=== PATIENT | female | born 1980 | race Caucasian/White ===

== ENCOUNTER 2017-07-15 15:31 | Emergency (ER) | payer OTHER ==
--- NOTE | 2017-07-15 16:03 | EDM.PDOC ---
ED HPI GENERAL MEDICAL PROBLEM - General Chief Complaint: Lower Extremity Injury/Pain Stated Complaint: INJURY AT WORK, KNEE INJURY Time Seen by Provider: 07/15/17 15:55 Source of Information: Reports: Patient History Limitations: Reports: No Limitations - History of Present Illness INITIAL COMMENTS - FREE TEXT/NARRATIVE: This 37 yo female patient reports to the ED with left ankle pain. The patient was working at [employer] when she slipped on some water and fell. The patient reports she has had ankle pain since the fall. The patient has not been able to walk on the ankle since the injury. The patient also reports some minor pain in her knees due to the fall. Onset: Today Duration: Minutes: Location: Reports: Lower Extremity, Left Quality: Reports: Ache, Dull Severity: Moderate Improves with: Reports: None Worsens with: Reports: None Left Ankle Pain Score (Numeric/FACES): 7 - Related Data Allergies Allergy/AdvReac Type Severity Reaction Status Date / Time No Known Allergies Allergy Verified 07/15/17 15:43 Home Meds: Home Meds . [No Known Home Meds] 07/21/13 [History] Past Medical History - Past Health History Medical/Surgical History: Denies Medical/Surgical History Social & Family History - Tobacco Use Smoking Status *Q: Never Smoker Second Hand Smoke Exposure: No - Alcohol Use Days Per Week of Alcohol Use: 0 - Recreational Drug Use Recreational Drug Use: No Review of Systems - Review of Systems Review Of Systems: ROS reveals no pertinent complaints other than HPI. ED EXAM, GENERAL - Physical Exam Exam: See Below Exam Limited By: No Limitations General Appearance: Alert, WD/WN, No Apparent Distress Eye Exam: Bilateral Eye: EOMI, Normal Inspection, PERRL Ears: Normal External Exam, Normal Canal, Hearing Grossly Normal, Normal TMs Nose: Normal Inspection, Normal Mucosa, No Blood Throat/Mouth: Normal Inspection, Normal Lips, Normal Teeth, Normal Gums, Normal Oropharynx, Normal Voice, No Airway Compromise Head: Atraumatic, Normocephalic Neck: Normal Inspection, Supple, Non-Tender, Full Range of Motion Respiratory/Chest: No Respiratory Distress, Lungs Clear, Normal Breath Sounds, No Accessory Muscle Use, Chest Non-Tender Cardiovascular: Normal Peripheral Pulses, Regular Rate, Rhythm, No Edema, No Gallop, No JVD, No Murmur, No Rub GI/Abdominal: Normal Bowel Sounds, Soft, Non-Tender, No Organomegaly, No Distention, No Abnormal Bruit, No Mass (Female) Exam: Deferred Rectal (Female) Exam: Deferred Back Exam: Normal Inspection, Full Range of Motion, NT Extremities: Joint Swelling (left ankle), Leg Pain (left ankle pain) Neurological: Alert, Oriented, CN II-XII Intact, Normal Cognition, Normal Gait, Normal Reflexes, No Motor/Sensory Deficits Psychiatric: Normal Affect, Normal Mood Course - Vital Signs Last Recorded V/S: Last Vital Signs Temp 35.9 C 07/15/17 15:40 Pulse 97 07/15/17 15:40 Resp 16 07/15/17 15:40 BP 131/73 07/15/17 15:40 Pulse Ox 100 07/15/17 15:40 Departure - Departure Time of Disposition: 16:58 Disposition: Home, Self-Care 01 Condition: Fair Clinical Impression: Left ankle pain Qualifiers: Chronicity: acute Qualified Code(s): M25.572 - Pain in left ankle and joints of left foot Left ankle sprain Qualifiers: Encounter type: initial encounter Involved ligament of ankle: other ligament Qualified Code(s): S93.492A - Sprain of other ligament of left ankle, initial encounter - Discharge Information Instructions: Ankle Sprain, [id number] Forms: ED Department Discharge Care Plan Goals: The patient was advised of the examination and x-ray results during the visit. The patient was placed in a padded ankle splint while in the ED. The patient was encouraged to rest, ice and elevate the extremity. If the patient has any additional symptoms or concerns, the patient should follow-up with her primary care facility or return to the emergency department.
--- NOTE | 2017-07-15 16:35 | CR ---
Clinical history: 37-year-old female left ankle injury (Workmen's Comp.) Interpretation: pes cavus with heel spurs that were present on previous exam left foot, July 02. Soft tissue swelling particularly prominent medially where there is underlying, smoothly corticated, osseous subtibiale. Asymmetry widening of the tibiotalar mortise joint laterally suggesting ligamentous injury. No sign of acute left ankle fracture or dislocation.
== END 2017-07-15 17:13 | disposition home or self-care (01) ==
LOC: DL.ED 15:31
DX: S93.492A Sprain of other ligament of left ankle, initial encounter (principal); W01.0XXA Fall on same level from slipping, tripping and stumbling without subsequent striking against object, initial encounter
CPT/HCPCS: 73610-LT; 99283

== ENCOUNTER 2018-09-23 14:02 | Emergency (ER) | payer MEDICAID, OTHER ==
[2018-09-23] MEDS ORDERED: Sodium Chloride 0.9% 10 ML Syringe FLUSH PRN (14:17)
--- NOTE | 2018-09-23 14:22 | EDM.PDOC ---
ED HPI GENERAL MEDICAL PROBLEM - General Chief Complaint: General Stated Complaint: HAD SURGERY ON WEDNESDAY HAVING PAIN IN SHOULDER Time Seen by Provider: 09/23/18 14:10 Source of Information: Reports: Patient History Limitations: Reports: No Limitations - History of Present Illness INITIAL COMMENTS - FREE TEXT/NARRATIVE: This 38 yo female patient reports to the ED with right shoulder pain. The patient reports she had a hysterectomy on Wednesday in [place] and has had right shoulder pain since surgery. The patient reports she has been taking the pain medications as prescribed, but has continued to have pain in her right shoulder. The patient reports no reduction in pain with movements or positions. The patient called her surgeon and was advised to go to the ED to get her pain checked out. The patient reports her current pain is identical to the pain she was feeling while she was in the hospital post-op. Onset Date: 09/20/18 Duration: Constant Location: Reports: Upper Extremity, Right (shoulder) Quality: Reports: Ache, Sharp Severity: Severe Improves with: Reports: None Worsens with: Reports: None Associated Symptoms: Reports: Other Right Shoulder Pain Score (Numeric/FACES): 8 - Related Data Allergies Allergy/AdvReac Type Severity Reaction Status Date / Time No Known Allergies Allergy Verified 09/23/18 14:37 Home Meds: Home Meds . [No Known Home Meds] 07/21/13 [History] Past Medical History - Past Health History Medical/Surgical History: Denies Medical/Surgical History ED ROS GENERAL - Review of Systems Review Of Systems: ROS reveals no pertinent complaints other than HPI. ED EXAM, GENERAL - Physical Exam Exam: See Below Exam Limited By: No Limitations General Appearance: Alert, WD/WN, Moderate Distress Eye Exam: Bilateral Eye: EOMI, Normal Inspection, PERRL Ears: Normal External Exam, Normal Canal, Hearing Grossly Normal, Normal TMs Nose: Normal Inspection, Normal Mucosa, No Blood Throat/Mouth: Normal Inspection, Normal Lips, Normal Teeth, Normal Gums, Normal Oropharynx, Normal Voice, No Airway Compromise Head: Atraumatic, Normocephalic Neck: Normal Inspection, Supple, Non-Tender, Full Range of Motion Respiratory/Chest: No Respiratory Distress, Lungs Clear, Normal Breath Sounds, No Accessory Muscle Use, Chest Non-Tender Cardiovascular: Normal Peripheral Pulses, Regular Rate, Rhythm, No Edema, No Gallop, No JVD, No Murmur, No Rub GI/Abdominal: Normal Bowel Sounds, Soft, Non-Tender, No Organomegaly, No Distention, No Abnormal Bruit, No Mass (Female) Exam: Deferred Rectal (Female) Exam: Deferred Back Exam: Normal Inspection, Full Range of Motion, NT Extremities: Arm Pain (right shoulder pain) Neurological: Alert, Oriented, CN II-XII Intact, Normal Cognition, Normal Gait, Normal Reflexes, No Motor/Sensory Deficits Psychiatric: Normal Affect, Normal Mood Skin Exam: Warm, Dry, Intact, Normal Color, No Rash Lymphatic: No Adenopathy Course - Vital Signs Last Recorded V/S: Last Vital Signs Temp 37.0 C 09/23/18 14:11 Pulse 88 09/23/18 14:11 Resp 18 09/23/18 14:11 BP 152/86 H 09/23/18 14:11 Pulse Ox 100 09/23/18 14:11 - Orders/Labs/Meds Orders: Active Orders 24 hr Category Date Time Status CULTURE BLOOD [BC] Stat Lab 09/23/18 14:18 Ordered Ketorolac [Toradol] Med 09/23/18 15:17 Once 30 mg IVPUSH ONETIME ONE Sodium Chloride 0.9% [Saline Flush] Med 09/23/18 14:17 Ordered 10 ml FLUSH ASDIRECTED PRN Saline Lock Insert [OM.PC] Routine Oth 09/23/18 14:17 Ordered Medication Orders Ketorolac Tromethamine (Toradol) 30 mg IVPUSH ONETIME ONE Stop: 09/23/18 15:18 Sodium Chloride (Saline Flush) 10 ml FLUSH ASDIRECTED PRN PRN Reason: Keep Vein Open Last Admin: 09/23/18 14:40 Dose: 10 ml Labs: Laboratory Tests 09/23/18 09/23/18 09/23/18 Range/Units 14:31 14:31 14:31 WBC 11.9 H (5.0-10.0) 10^3/uL RBC 4.11 L (4.2-5.4) 10^6/uL Hgb 11.6 L (12.0-16.0) g/dL Hct 35.4 L (37.0-47.0) % MCV 86.1 (80-100) fL MCH 28.2 (27.0-34.0) pg MCHC 32.8 L (33.0-35.0) g/dL Plt Count 284 (150-450) 10^3/uL Neut % (Auto) 59.9 (42.2-75.2) % Lymph % (Auto) 28.8 (20.5-50.1) % [place] % (Auto) 9.7 H (2-8) % Eos % (Auto) 1.3 (1.0-3.0) % Baso % (Auto) 0.3 (0.0-1.0) % Sodium 137 (135-145) mmol/L Potassium 3.5 L (3.6-5.0) mmol/L Chloride 103 (101-111) mmol/L Carbon Dioxide 25.0 (21.0-31.0) mmol/L Anion Gap 12.5 BUN 12 (7-18) mg/dL Creatinine 0.6 (0.6-1.3) mg/dL Est Cr Clr Drug Dosing 112.15 mL/min Estimated GFR (MDRD) > 60 BUN/Creatinine Ratio 20.00 Glucose 98 (74-105) mg/dL Lactic Acid 1.4 (0.5-2.2) mmol/L Calcium 8.4 (8.4-10.2) mg/dl Total Bilirubin 0.6 (0.2-1.0) mg/dL AST 16 (10-42) IU/L ALT 13 (10-60) IU/L Alkaline Phosphatase 58 (42-121) IU/L Total Protein 6.8 (6.7-8.2) g/dl Albumin 3.5 (3.2-5.5) g/dl Globulin 3.3 Albumin/Globulin Ratio 1.06 Meds: Medications Generic Name Dose Route Start Last Admin Trade Name Freq PRN Reason Stop Dose Admin Ketorolac Tromethamine 30 mg 09/23/18 15:17 Toradol IVPUSH 09/23/18 15:18 ONETIME ONE Sodium Chloride 10 ml 09/23/18 14:17 09/23/18 14:40 Saline Flush FLUSH 10 ml ASDIRECTED PRN Administration Keep Vein Open Departure - Departure Time of Disposition: 15:18 Disposition: Home, Self-Care 01 Condition: Fair Clinical Impression: Acute postoperative pain of right shoulder - Discharge Information *PRESCRIPTION DRUG MONITORING PROGRAM REVIEWED*: Not Applicable *COPY OF PRESCRIPTION DRUG MONITORING REPORT IN PATIENT ROME: Not Applicable Instructions: Shoulder Pain, [id number] Forms: ED Department Discharge Care Plan Goals: The patient was advised of the examination and lab results during the visit. The patient was encouraged to take her medication as prescribed. If the patient has any additional symptoms or concerns, the patient should either return to the emergency department or visit her primary care facility. - My Orders Last 24 Hours: My Active Orders 09/23/18 14:17 Sodium Chloride 0.9% [Saline Flush] 10 ml FLUSH ASDIRECTED PRN Saline Lock Insert [OM.PC] Routine 09/23/18 14:18 CULTURE BLOOD [BC] Stat 09/23/18 15:17 Ketorolac [Toradol] 30 mg IVPUSH ONETIME ONE - Assessment/Plan Last 24 Hours: My Active Orders 09/23/18 14:17 Sodium Chloride 0.9% [Saline Flush] 10 ml FLUSH ASDIRECTED PRN Saline Lock Insert [OM.PC] Routine 09/23/18 14:18 CULTURE BLOOD [BC] Stat 09/23/18 15:17 Ketorolac [Toradol] 30 mg IVPUSH ONETIME ONE
[2018-09-23 15:04] LABS: ANION GAP 12.5; CHLORIDE,CL 103 mmol/L (101-111); SODIUM,NA 137 mmol/L (135-145)
[2018-09-23] MEDS ORDERED: Ketorolac 30 MG/ML SDV IVPUSH ONE (15:17)
== END 2018-09-23 15:26 | disposition home or self-care (01) ==
LOC: DL.ED 14:02
DX: G89.18 Other acute postprocedural pain (principal); M25.511 Pain in right shoulder; Z90.710 Acquired absence of both cervix and uterus
CPT/HCPCS: 36415; 80053; 83605; 85025; 87040; 96374; 99283; J1885